=== PATIENT | male | born 2000 | race African-American/Black ===

== ENCOUNTER 2025-03-11 15:30 | Emergency (ER) | payer OTHER, SELFPAY ==
[2025-03-11 15:44] VITALS: BP 153/85; PULSE 100; RESP 20; TEMP 37.4; O2SAT 99
--- NOTE | 2025-03-11 15:52 | ED_ITS ---
HPI - Wound/Laceration General Chief Complaint: Wound/Laceration Stated Complaint: Left Hand Thumb Laceration patient presents to the [facility] with complaints of laceration to left thumb that happened just prior to arrival at [facility]. 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 Patient noted he helped pressure to the area initially was not going to come for evaluation. Patient noted unsure of when last tetanus vaccination was. Denies numbness or tingling in hands or fingers. Related Data Home Medications ?Medication ?Instructions ?Recorded ?Confirmed ?Last Taken ?Type No Home Medications 03/11/25 03/11/25 U nknown History Allergies Allergy/AdvReac Type Severity Reaction Status Date / Time No Known Allergies Allergy Verified 03/11/25 15:51 Review of Systems Constitutional: Constitutional: Reports as per HPI, Denies chills, Denies fatigue, Denies fever(s) and Denies weakness Eyes: Eyes: Reports no additional eye complaints ENT: Reports system reviewed and no additional complaints, except as documented Cardiovascular: Cardiovascular: Reports no additional cardiovascular complaints Respiratory: Respiratory: Reports no additional respiratory complaints Gastrointestinal: Gastrointestinal: Reports no additional gastrointestinal complaints Genitourinary: Genitourinary: Reports no additional male genitourinary complaints Musculoskeletal: Musculoskeletal: Reports as per HPI, Denies arthralgias, Denies joint swelling and Denies muscle cramps Integumentary/Breasts: Skin/Breast: Reports as per HPI, Denies pruritus, Denies erythema and Denies rash Comments: Laceration left thumb Neurologic: Reports as per HPI and Denies weakness Psychiatric: Psychiatric: Reports no additional psychiatric complaints Endocrine: Endocrine: Reports no additional endocrine complaints Hematologic/Lymphatic: Hematologic/Lymphatic: Reports no additional hematologic/lymphatic complaints Allergic/Immunologic: Allergic/Immunologic: Reports no additional allergic/immunologic complaints Exam Const: General: healthy appearing and no acute distress Nutritional Appearance: well nourished Orientation/consciousness: patient oriented x3 Limitations: no limitations Resp: Effort & Inspection: normal respiratory effort Cardio: Rate: regular rate Skin: General skin exam: normal color Rashes: no rashes Wounds: wounds noted Other: large 3 cm flat laceration noted to left thumb. No damage to nail noted Neuro: General: patient oriented x3 and moves all extremities Speech: normal speech Gait exam (Neuro): Normal gait present Extrem: Left upper extremity: hand abnormal to inspection (laceration left thumb), normal capillary refill, neuromotor exam normal, neurosensory exam normal, tendon exam normal, tenderness of the thumb, normal ROM of fingers and laceration; no unusual warmth, no swelling, no abrasions, no ecchymosis, no crepitus and no puncture wound Psych: Mental Status: mental status grossly normal Affect: normal affect Attitude: cooperative Course Course Level of Care: Express Care Visit Vital Signs Vital signs: Vital Signs Temperature 99.3 F 03/11/25 15:44 Pulse Rate 100 03/11/25 15:44 Respiratory Rate 20 03/11/25 15:44 Blood Pressure 153/85 H 03/11/25 15:44 Pulse Oximetry 99 03/11/25 15:44 Oxygen Delivery Room Air 03/11/25 15:44 Temperature 99.3 F 03/11/25 15:44 Pulse Rate 100 03/11/25 15:44 Respiratory Rate 20 03/11/25 15:44 Blood Pressure 153/85 H 03/11/25 15:44 Pulse Oximetry 99 03/11/25 15:44 Oxygen Delivery Room Air 03/11/25 15:44 Procedures Laceration Laceration 1: Date: 03/11/25 Time: 16:16 Site: hand Side (If applicable): left (thumb ) Size (cm): 3 Description: flap and irregular Depth: simple, single layer Local Anesthetic: lidocaine 1% Amount of anesthesia used (mL): 5 Pre-repair: wound explored, irrigated and deep structures intact ====== Skin Level ====== Skin layer closed with: vicryl Size (cm): 4-0 Number of sutures: 7 Technique: simple, interrupted ====== Subcutaneous Layer ====== ====== Muscle Layer ====== ====== Tendon Layer ====== MDM - Wound/Laceration MDM Narrative Medical decision making narrative: wound cleaned by RN. Sutures needed. Will update patient tetanus vaccination educated patient on wound care practices. The patient was evaluated by myself in the express care. History is obtained from patient who is an independent historian and physical exam was performed. Available medical records were reviewed at this time. Exam findings show no acute concerns or changes; patient is non-toxic appearing and is in no distress. Patient is appropriate for outpatient treatment and follow-up. I have evaluated and discussed social determinants of health with the patient that could potentially impact subsequent diagnosis and treatment plans. Differential diagnosis and treatment plan were discussed with the patient. Patient agrees with discussion and after shared medical decision making agrees with plan of care. All questions were answered to the patient's satisfaction. Differential Diagnosis Differential diagnosis: Likely laceration, abscess, abrasion and avulsion of skin Medical Records Attestation: I reviewed the patient's medical records. Discharge Plan Discharge Clinical Impression: Laceration of left thumb without foreign body without damage to nail Patient Disposition: Home Condition: Stable Instructions: Antibiotic Form, Finger Laceration (ED) Additional Instructions: -Keep the dressing clean and dry for 1-2days; then you may gently clean with soap and water whenever you take a shower; however no continuous water contact like dishes or swimming. Getting them too wet can slow down healing and raise your chance of getting an infection. After you wash your stitches or yunior, pat them dry and put an antibiotic ointment on them. -watch for signs of infection including: redness or swelling around the cut, or pus drains from the cut. It is normal for clear yellow fluid to drain from the cut in the first few days. -follow up with PCP for suture/staple in removal 7-10 days - we have updated your tetanus vaccination. This is good for 10 years Patient Language: Guyanese Prescriptions: No Action No Home Medications Follow-up/Referrals: Raymundo,Elvin Poole MD [Primary Care Provider, Unknown] Time of Disposition: 16:18
[2025-03-11] MEDS: TETANUS,DIPHTHERIA,AC PERTUSSIS ADULT (0.5 ML) BOOSTRIX IM (16:22)
== END 2025-03-11 16:34 | disposition home or self-care (01) ==
PROVIDERS: Emergency Provider Nurse Practitioner Family; PCP Internal Medicine Cardiovascular Disease
DX: S61.012A Laceration without foreign body of left thumb without damage to nail, initial encounter (principal); W45.8XXA Other foreign body or object entering through skin, initial encounter; Y99.0 Civilian activity done for income or pay; Z23 Encounter for immunization
CPT/HCPCS: 12002; 90471; 90715; 99202; G0463